=== PATIENT | female | born 1995 | race Caucasian/White ===

== ENCOUNTER 2021-02-23 14:32 | Emergency (ER) | payer OTHER ==
[~2021-02-23 14:32] MED LIST: DICLOFENAC SODI75 MG PO; PRENATAL FORMU1 EACH PO
[2021-02-23 15:05] LABS: BASOPHIL 0.3 % (0-2); EOSINOPHIL 0.8 % (0-5); HGB 13.7 g/dl (12.5-16.0); MCH 30.2 pg (25.0-31.0); MCHC 33.4 g/dL (32.0-36.0); MCV 90.3 fL (78.0-100.0); MONOCYTE 4.4 % (0-12); MPV 10.9 fL (6.0-9.5); NEUTROPHIL 80.2 % (41-80); NRBC 0; PLT 247 K/uL (150-400); RBC 4.54 M/uL (4.20-5.40); RDW 13.2 % (11.5-14.0); WBC 8.9 K/uL (4.0-10.5)
[2021-02-23 15:25] LABS: ALBUMIN 3.9 g/dL (3.4-5.0); BILIRUBIN - TOTAL 0.5 mg/dL (0.2-1.0); BUN/CREAT RATIO (CALC) 8.8 RATIO; CREATININE 0.57 mg/dL (0.51-0.95); GLOBULIN (CALCULATION) 3.8 g/dL; POTASSIUM 4.2 mmol/L (3.5-5.1); TOTAL PROTEIN 7.7 g/dL (6.4-8.2)
[2021-02-23] MEDS ORDERED: ATARAX25 MG PO (16:25)
== END 2021-02-23 15:43 | disposition home or self-care (01) ==
LOC: FER 14:32
PROVIDERS: Emergency Medicine
DX: F41.9 Anxiety disorder, unspecified (principal); R07.89 Other chest pain; Z88.0 Allergy status to penicillin; Z88.2 Allergy status to sulfonamides; Z88.8 Allergy status to other drugs, medicaments and biological substances
CPT/HCPCS: 36415; 71045; 80053; 84484; 85025; 85379; 93005